=== PATIENT | female | born 1985 | race Caucasian/White ===

== ENCOUNTER 2016-09-28 17:44 | Observation (INO) | payer MEDICAID ==
[~2016-09-28] VITALS: Ht 165.1 cm; Wt 61.4 kg
[~2016-09-28 17:44] MED LIST: BACTRIM DS 8001 TAB PO; CITALOPRAM20 MG PO; FLEXERIL10 MG PO; KLONOPIN 1MG1 MG PO; KLONOPIN2 MG PO; LORTAB 5/500 501 TAB PO; METRONIDAZOLE500 MG PO; NAPROSYN500 MG PO; NAPROXEN ER500 MG PO; NO HOME MEDICATIONS; NORCO 325 MG-7.1 TAB PO; PERCOCET 325 MG1 TA2 PO; PROMETHAZINE12.5 M5 PO; ULTRAM 50MG TAB50 MG PO; WELLBUTRIN SR150 M1; ZOLOFT 25MG25 MG PO
[2016-09-28 18:19] VITALS: BP 117/73; PULSE 67; TEMP 97.5
[2016-09-28 21:26] VITALS: BP 108/68; PULSE 77; TEMP 97.5
[2016-09-29] VITALS (13 sets, daily range): BP systolic 96–117; BP diastolic 65–77; PULSE 56–96; TEMP 97–98
[2016-09-29 07:50] LABS: BASO # 0.1 (0.0-0.2); BASO % 0.9 % (0.0-2.0); EOS # 0.1 (0.0-0.7); EOS % 1.6 % (0-4.0); GRAN # 5.8 (1.4-6.5); GRAN % 64.7 % (42.2-75.2); LYMPH # 2.3 (1.2-3.4); LYMPH % 25.2 % (20.0-51.0); MEAN CELL VOLUME 93 fl (80.0-100.0); MEAN CORPUSCULAR HGB CONC 33 g/dl (33.0-37.0); MEAN PLATELET VOLUME 10.5 fl (7.4-10.4); MONO # 0.7 (0.1-0.6); MONO % 7.4 % (1.7-9.3); PLATELET COUNT 285 K/mm3 (130-400); RED BLOOD COUNT 3.81 M/mm3 (4.10-5.30); REDCELL DISTRIBUTION WIDTH-CV 11.9 % (11.5-14.5); WHITE BLOOD COUNT 8.9 K/mm3 (4.8-10.8)
[2016-09-29 08:04] LABS: HEMATOCRIT 35.5 % (37.0-47.0); HEMOGLOBIN 11.6 g/dl (12.5-16.0); MEAN CORPUSCULAR HEMOGLOBIN 30 pg (27.0-31.0)
[2016-09-29 08:07] LABS: ADJUSTED CALCIUM 9.5 mg/dL (8.4-10.2); ALBUMIN 3.2 gm/dL (3.5-5.0); CALCIUM 8.9 mg/dL (8.4-10.2); CREATININE, serum 0.66 mg/dL (0.52-1.25); POTASSIUM 4.3 mmol/L (3.4-5.0); TOTAL PROTEIN 6.3 gm/dL (6.4-8.2)
[2016-09-29] MEDS ORDERED: ZOFRAN ODT4 MG PO (13:31)
[2016-09-29] MEDS ORDERED: PERCOCET 325 MG1 TA2 PO (13:33)
== END 2016-09-29 20:30 | disposition home or self-care (01) ==
LOC: SDCO 17:44 → SURG 17:45 → SDCO 20:29 → SURG 20:29
PROVIDERS: Surgery
DX: K80.00 Calculus of gallbladder with acute cholecystitis without obstruction (principal)
CPT/HCPCS: G0378; J0330; J0744; J1100; J1170; J1885; J2175; J2405; J2704; J2765; J3010; J7120; Q9967

== ENCOUNTER 2019-01-25 15:08 | Emergency (ER) | payer SELFPAY ==
[~2019-01-25] VITALS: Ht 165.1 cm; Wt 54.5 kg
[~2019-01-25 15:08] MED LIST changes: +ZOFRAN ODT4 MG PO
[2019-01-25 15:13] VITALS: TEMP 98.1
[2019-01-25] MEDS ORDERED: SUPRAX400 MG PO (15:45)
[2019-01-25] MEDS ORDERED: CLEOCIN HCL300 MG PO (15:45)
[2019-01-25] MEDS ORDERED: MOTRIN 600600 MG/TAB PO (16:02)
[2019-01-25 16:04] VITALS: BP 118/85; PULSE 103
== END 2019-01-25 16:05 | disposition home or self-care (01) ==
LOC: COL.ER 15:08
DX: K04.7 Periapical abscess without sinus (principal); J32.9 Chronic sinusitis, unspecified; F32.9 Major depressive disorder, single episode, unspecified; F41.9 Anxiety disorder, unspecified; F17.210 Nicotine dependence, cigarettes, uncomplicated; Z88.0 Allergy status to penicillin; Z98.51 Tubal ligation status

== ENCOUNTER → 2024-04-20 | Outpatient (CLI) | payer OTHER ==
[~2024-04-20] MED LIST changes: +CLEOCIN HCL300 MG PO; +MOTRIN 600600 MG/TAB PO; +SUPRAX400 MG PO
== END ==
LOC: COL.RAD 14:15
DX: E05.90 Thyrotoxicosis, unspecified without thyrotoxic crisis or storm (principal)